=== PATIENT | male | born 1985 | race Asian ===

== ENCOUNTER 2022-03-08 15:24 | Emergency (ER) | payer OTHER, SELFPAY ==
[2022-03-08 15:59] VITALS: BP 122/79; PULSE 98; RESP 22; TEMP 38; O2SAT 97
[2022-03-08 17:07] LABS: Influenza A - CEPHEID Flu A NEGATIVE (NEGATIVE); Influenza B - CEPHEID Flu B NEGATIVE (NEGATIVE); Respiratory Syncytial Virus Negative (Negative)
[2022-03-08 17:13] LABS: COVID-19 CEPHEID 4-PLEX PCR POSITIVE (Negative)
--- NOTE | 2022-03-08 18:01 | ED_ITS ---
HPI - URI/Sore Throat <JORGE Branch - Last Filed: 03/08/22 18:03> General Chief Complaint: Upper Respiratory Symptoms Stated Complaint: cough, wants a covid test Time Seen by Provider: 03/08/22 17:55 Source: patient Mode of arrival: Ambulatory History of Present Illness HPI Narrative: This is a 36-year-old male without significant medical problems who presents to the emergency department after he had runny nose, cough, fever and sore throat which started yesterday. He is COVID vaccinated x3, states that he took ibuprofen and Tylenol last night and that was helpful. Took some DayQuil today. Patient denies any shortness of breath, wheezing, difficulty breathing, nausea, vomiting but endorses having diarrhea. He denies any blood in that. He is concerned about COVID infection. He is a nonsmoker, denies any lung problems. Review of Systems <JORGE Branch - Last Filed: 03/08/22 18:03> Review of Systems Narrative: Review of systems is negative for acute abnormalities unless otherwise noted in HPI Exam <JORGE Branch - Last Filed: 03/08/22 18:03> Narrative Exam Narrative: Reviewed vitals signs and nursing notes. General: cooperative, comfortable, in no acute distress, well groomed, febrile HEENT: symmetrical facial expressions, moist mucous membranes, rhinorrhea, congestion Cardiovascular: regular rate and rhythm, no peripheral edema, warm extremities Respiratory: normal effort, able to speak in complete sentences, without wheezing, stridor, or abnormal breath sounds. No retractions or tachypnea. Without abnormal breath sounds, dry cough Skin: brisk capillary refill, without pallor or erythema Neuro: normal speech and cognition, A&O x3, ambulatory, clear speech Psych: mental status is grossly normal, congruent mood, normal affect, pleasant and cooperative Initial Vital Signs Initial Vital Signs: Vital Signs Temperature 100.4 F H 03/08/22 15:59 Pulse Rate 98 H 03/08/22 15:59 Respiratory Rate 22 03/08/22 15:59 Blood Pressure 122/79 03/08/22 15:59 Pulse Oximetry 97 03/08/22 15:59 Oxygen Delivery Method 03/08/22 15:59 <Humza Godinez DO - Last Filed: 03/08/22 18:24> Initial Vital Signs Initial Vital Signs: Vital Signs Temperature 100.4 F H 03/08/22 15:59 Pulse Rate 98 H 03/08/22 15:59 Respiratory Rate 22 03/08/22 15:59 Blood Pressure 122/79 03/08/22 15:59 Pulse Oximetry 97 03/08/22 15:59 Oxygen Delivery Method 03/08/22 15:59 Course <JORGE Branch - Last Filed: 03/08/22 18:03> Orders Ordered: ED Orders 03/08/22 16:16 Covid-19 + FLU A/B + RSV - PCR Stat Vital Signs Vital signs: Vital Signs - 8 hr 03/08/22 15:59 Temperature 100.4 F H Pulse Rate 98 H Respiratory Rate 22 Blood Pressure 122/79 Pulse Oximetry 97 Oxygen Delivery Method Room Air <Humza Godinez DO - Last Filed: 03/08/22 18:24> Orders Ordered: ED Orders 03/08/22 16:16 Covid-19 + FLU A/B + RSV - PCR Stat Vital Signs Vital signs: Vital Signs - 8 hr 03/08/22 15:59 Temperature 100.4 F H Pulse Rate 98 H Respiratory Rate 22 Blood Pressure 122/79 Pulse Oximetry 97 Oxygen Delivery Method Room Air MDM - URI/Sore Throat <JORGE Branch - Last Filed: 03/08/22 18:03> Lab Data Labs: Lab Results 03/08/22 Range/Units 16:16 SARS-CoV-2 (PCR) Positive H (Negative) Influenza A (RT-PCR) Flu a negative (NEGATIVE) Influenza B (RT-PCR) Flu b negative (NEGATIVE) RSV (PCR) Negative (Negative) MDM Narrative Medical decision making narrative: COVID (+) on day 2 of symptoms without hypoxia, respiratory distress, dehydration, or focal exam to suggest secondary bacterial infection. Discussed CDC guidelines for quarantine, mask wearing, physical distancing, and infection prevention measures such as frequent handwashing. Discussed supportive treatments: Tylenol/Motrin as needed for pain/fever. OTC decongestant medications and/or antihistamines for symptomatic relief. Maintain adequate fluid intake. Follow-up with PCP as directed. Return to clinic/ER instructions discussed for new, not improving, or worsening symptoms. All questions answered. <Humza Godinez DO - Last Filed: 03/08/22 18:24> Lab Data Labs: Lab Results 03/08/22 Range/Units 16:16 SARS-CoV-2 (PCR) Positive H (Negative) Influenza A (RT-PCR) Flu a negative (NEGATIVE) Influenza B (RT-PCR) Flu b negative (NEGATIVE) RSV (PCR) Negative (Negative) Discharge Plan Departure Patient Disposition: Home Clinical Impression: COVID-19 Instructions: COVID-19 Activity Restrictions/Additional Instructions: *You have been diagnosed with COVID, your test was positive today. You also had a mild fever, please take Tylenol and ibuprofen to help this go down, avoid going back to work until you do not have a fever any longer, please stay hydrated that will help with the muscle aches. If you have a runny nose, try Zyrtec or if you have a productive cough, Mucinex might be helpful. I hope you feel better soon, please return for any worsening of her symptoms, remember to quarantine and I hope you feel better soon *What to do: *Please continue to take your regular medications as directed. [ ] New medication prescriptions sent to your pharmacy: [ ] [ ] New medication written as a paper prescription [ x] No new medications given *Please follow up with your primary care provider in 2-3 days, call for an appointment. Let them know you were seen in the Emergency Department and that we asked that you be seen for follow-up. We will electronically transmit a record of today's note if your PCP is in our system *If you do not have a primary care provider please contact [phone] to establish care with one of the [facility] primary care providers. *Return to Emergency Department if you should have any new, worsening, or concerning symptoms, such as [fever greater than 101F, chills, worsening pain, persistent vomiting or other bothersome symptoms]. Visit Report Forms: Patient Portal/API <Humza Godinez DO - Last Filed: 03/08/22 18:24> Cosign ED Attending Cosignature Attestation: Dr Godinez Co-Sign Statement: I was available for consultation during this pa rafael's emergency department visit. This chart is signed by myself for administrative purposes only. I did not have direct contact with this patient during this visit. They were seen independently by the APC.
== END 2022-03-08 18:04 | disposition home or self-care (01) ==
PROVIDERS: Emergency Medicine; Emergency Provider Nurse Practitioner Critical Care Medicine
DX: U07.1 COVID-19 (principal)
CPT/HCPCS: 0241U; 99281; 99282

== ENCOUNTER → 2022-11-01 13:25 | Outpatient (CLI) | payer OTHER, SELFPAY ==
--- NOTE | 2022-11-01 | DI.RAD.S_ITS ---
PROCEDURE: FL SHOULDER INJECTION MR/CT RT INDICATIONS: RIGHT SHOULDER PAIN COMPARISON: None TECHNIQUE: The indications, alternatives, benefits, risks, and complications of the procedure were explained to the patient. Written informed consent was obtained and placed in the chart. The shoulder was examined fluoroscopically and a site for needle placement chosen for entry into the glenohumeral joint from an anterior approach. The skin was prepped and draped in a sterile fashion, and 1% lidocaine infiltrated from skin down to joint capsule. A spinal needle was inserted into the glenohumeral joint, and a small amount of iodinated contrast media injected to confirm intra-articular placement of the needle tip. This was followed by approximately 12 mL dilute solution of a gadolinium containing MR contrast agent. The needle was removed and a dressing was applied. The patient was given postprocedural instructions and sent to the MR suite for MR imaging. FINDINGS: A single fluoroscopic spot image demonstrates intra-articular location of injected iodinated contrast. IMPRESSION: Successful fluoroscopically guided administration of dilute Gadolinium solution into the shoulder joint for MR arthrogram. Dictated by: Darrion Palma M.D. on 11/01/2022 at 15:03 Approved by: Darrion Palma M.D. on 11/01/2022 at 15:05
--- NOTE | 2022-11-01 | DI.MRI.S_ITS ---
PROCEDURE: MR SHOULDER RT W CON INDICATIONS: RIGHT SHOULDER PAIN TECHNIQUE: After the administration of 12 mL of dilute intra-articular Gadolinium contrast, oblique coronal T1 and T2 spin echo with fat saturation, oblique sagittal T1 spin echo with and without fat saturation, oblique sagittal T2 fast spin echo with fat saturation, axial T1 spin echo with fat saturation through the shoulder. COMPARISON: None. FINDINGS: Image quality: Excellent. Rotator cuff: Moderate grade articular and bursal surface partial thickness tear involving distal supraspinatus at its insertion on the humeral head is seen extending to musculotendinous junction. Distal infraspinatus tendinosis and low to moderate grade articular surface partial-thickness tear at its insertion on the humeral head is also noted. Distal subscapularis tendon is intact. No full-thickness rotator cuff tendon rupture. No rotator cuff muscle atrophy on sagittal images. Bones and bursae: No bone marrow contusions or fractures. Mild acromioclavicular joint osteoarthritic changes are seen with joint space narrowing and downward osteophyte formation depressing the musculotendinous junction of supraspinatus. Capsule and soft tissues: The labrum and glenohumeral ligaments appear intact. The long head of the biceps tendon demonstrates normal location and morphology. The rotator interval appears normal, without fibrosis. The coracohumeral ligament is of normal thickness. No intra-articular bodies. IMPRESSION: 1. Moderate grade articular and bursal surface partial thickness tear involving distal supraspinatus at its insertion on the humeral head extending to musculotendinous junction. Distal infraspinatus tendinosis and low-grade articular surface partial-thickness tear is also seen at its insertion on humeral head. No full-thickness rotator cuff tendon rupture. No significant muscle atrophy. 2. Mild to moderate acromioclavicular joint osteoarthritis. No fracture or dislocation. No gross intra-articular loose bodies. 3. No evidence of focal labral tear. Dictated by: Yared Hinkle M.D. on 11/01/2022 at 17:17 Approved by: Yared Hinkle M.D. on 11/01/2022 at 19:52
== END ==
PROVIDERS: Referring Provider Student in an Organized Health Care Education/Training Program; Visit Provider Student in an Organized Health Care Education/Training Program
DX: M75.111 Incomplete rotator cuff tear or rupture of right shoulder, not specified as traumatic (principal); M19.011 Primary osteoarthritis, right shoulder; M25.511 Pain in right shoulder
CPT/HCPCS: 23350; 73222; 77002